=== PATIENT | male | born 1955 | race Caucasian/White ===

== ENCOUNTER 2017-11-16 06:54 | Day surgery (SDC) | payer BC, SELFPAY ==
[2017-11-16 07:17] VITALS: BP 111/83; PULSE 73; RESP 14; TEMP 36.2; O2SAT 98; BMI 28.9
--- NOTE | 2017-11-16 07:20 | EKG12_ITS ---
Test Reason : PRE OP Blood Pressure : / mmHG Vent. Rate : 065 BPM Atrial Rate : 065 BPM P-R Int : 192 ms QRS Dur : 088 ms QT Int : 396 ms P-R-T Axes : - 023 degrees QTc Int : 411 ms Normal sinus rhythm Normal ECG When compared with ECG of 24-JUN-1998 09:30, Questionable change in QRS axis Confirmed by COREY WAY, KHANG ([id number]), market editor VIOLETTA ENCARNACION ([id number]) on 11/21/2017 1:54:22 PM Referred By: Oscar Aburto Confirmed By:KHANG NICOLE MD
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
--- NOTE | 2017-11-16 08:30 | COLBX_PTH ---
PATIENT: JAYLENE SHARMA LOC: EN U#:[id number] AGE/SX: 62/M ROOM: RE11/16/[address]: Dr. Oscar Aburto MD : 1955 BED: DIS: 11/16/2017 SPEC #: [id number] RECD: 11/16/17 11:38 STATUS: JUAN J MARIA L #: [id number] HENOK: 11/16/17 08:[address]: Oscar Aburto DEPT: SURGICAL PATHOLOGY RECD BY: Zina Saha ENTERED: 11/16/17 12:05 SP TYPE: COLON BX OTHR DR: Dr. Lyndon Payton MD Tissues: Sigmoid colon biopsy Procedures: Surgery Specimen Level IV HEADER OPERATION: Colonoscopy PRE-OP DIAGNOSIS: Diverticulitis TISSUE SUBMITTED: Sigmoid colon at 15cm, polyp biopsy MICROSCOPIC DIAGNOSIS Sigmoid colon at 15cm, polyp, biopsy: Fragments of hyperplastic polyp. SJ:master 11/19/17 MICROSCOPIC DESCRIPTION Slides are reviewed. GROSS DESCRIPTION Received in fixative is one container labeled with the patient's name and designated sigmoid colon 15 cm polyp biopsy. The specimen consists of two irregular fragments of light gerber soft tissue that in aggregate measure 0.3 x 0.2 x 0.1 cm. The specimen is totally submitted in one cassette. / SJ:rg 11/16/17 TC:1 CPT: 05549
--- NOTE | 2017-11-16 08:42 | PCM.OPRPT ---
Problem List (1) Acute diverticulitis Status: Acute Report of Operation Date of Procedure: 11/16/17 Pre-Operative Diagnosis: Diverticulitis Post-Operative Diagnosis: Diverticulosis, sigmoid colon polyp Surgery/Procedure Performed:: Colonoscopy with biopsy Specimen's removed: Sigmoid colon polyp Description of Procedure: The major risks and benefits associated with the procedure were explained to the patient in detail. The patient verbalized understanding and agreement with the same. The patient was brought to the endoscopy suite. After adequate sedation was achieved, the patient was placed in the left lateral decubitus position and a digital rectal exam was performed. This examination was within normal limits. A well-lubricated colonoscope was then inserted into the rectum and advanced under direct visualization to the level of the cecum. The bowel prep was good. The cecum was identified by both visual and anatomic landmarks. A photograph was taken of the end of the cecum. The scope was then fully withdrawn while examining the color, texture, anatomy and integrity of the mucosa from the cecum to the anal canal. The findings were consistent with normal colonic mucosa. The patient had diverticulosis of the sigmoid colon. He did have a small polyp at 15 cm in the sigmoid colon which was removed with cold forceps. Over 6 minutes were taken to examine the colonic mucosa. Upon reaching the rectum the scope was retroflexed to examine the distal rectal vault. The scope was then straightened and was completely retrieved upon exiting the anal canal and the procedure was terminated. The patient was then transferred to the recovery room in stable condition. Recommendations for follow up: 10 years
[2017-11-16 08:48] VITALS: BP 107/84; BP 111/83; PULSE 64; RESP 18; TEMP 36.7; O2SAT 95
[2017-11-16 08:50] VITALS: BP 111/83; BP 118/88; PULSE 70; RESP 16; O2SAT 92
[2017-11-16 08:55] VITALS: BP 107/83; BP 111/83; PULSE 67; RESP 16; O2SAT 94
[2017-11-16 09:00] VITALS: BP 111/83; BP 125/84; PULSE 67; RESP 16; TEMP 36.3; O2SAT 93
[2017-11-16 09:24] VITALS: BP 111/83
== END 2017-11-16 09:24 | disposition home or self-care (01) ==
LOC: EN 06:55 → AC 06:56
PROVIDERS: Family Provider Family Medicine; PCP Family Medicine; Visit Provider Surgery
PROC: 0DJD8ZZ Inspection of Lower Intestinal Tract, Via Natural or Artificial Opening Endoscopic (ICD-10-PCS; CPT 45378; principal; 2017-11-16 07:55)
DX: K63.5 Polyp of colon (principal); K57.30 Diverticulosis of large intestine without perforation or abscess without bleeding; K21.9 Gastro-esophageal reflux disease without esophagitis; E78.00 Pure hypercholesterolemia, unspecified; N40.0 Benign prostatic hyperplasia without lower urinary tract symptoms; M19.90 Unspecified osteoarthritis, unspecified site; Z87.19 Personal history of other diseases of the digestive system; Z85.828 Personal history of other malignant neoplasm of skin; Z87.891 Personal history of nicotine dependence; Z79.899 Other long term (current) drug therapy
CPT/HCPCS: 45380; 88305; 93005; J7120

== ENCOUNTER 2017-11-26 06:20 | Inpatient (IN) | payer BC, SELFPAY ==
[2017-11-26] VITALS (13 sets, daily range): BP systolic 113–155; BP diastolic 71–94; PULSE 66–89; RESP 12–18; TEMP 35.6–37.1; O2SAT 90–97; BMI 28.6
--- NOTE | 2017-11-26 07:12 | PCM.HP.STD ---
Problem List (1) Diverticulitis Status: Acute History of Present Illness Date of Admission: 11/26/17 The patient is a 62 year old M who has a history of recurrent diverticulitis. He has had many bouts in the past years and is here for elective sigmoid colectomy. He had a colonoscopy 1 week ago which was normal except for diverticulosis. He has not had any issues since last time I saw him. Past Medical History Past Medical History (Chronic Problems): Chronic Problems (Last Reviewed 09/25/17 @ 14:06 by Denise John) GERD (gastroesophageal reflux disease) (Chronic) HLD (hyperlipidemia) (Chronic) Obesity (BMI 30.0-34.9) (Chronic) Allergies benzonatate [From [employer]PharmAthene] Allergy (Verified 11/15/17 08:21) Unknown Iyzjxhi-Zwd-Sul Reductase Inhibitor Allergy (Verified 11/15/17 08:21) SWOLLEN LIVER Home Medications: Ambulatory Orders Medication Instructions Recorded Cholecalciferol (Vitamin D3) 1,000 unit PO DAILY 09/08/17 [Vitamin D3] Ezetimibe [Zetia] 10 mg PO DAILY 09/08/17 Lysine [l-Lysine] 500 mg PO DAILY 09/08/17 Omeprazole [Prilosec] 10 mg PO DAILY 09/08/17 Surgical History: - - BL shoulder surgery, R 3rd-4th toe nerve removal. Psychiatric History: No pertinent psych hx Smoking Status: Former smoker - *Family History Maternal History Items: Heart Disease Paternal History Items: Heart Disease Review of Systems Constitutional: Denies: Anorexia, Fever HEENT: Denies: Difficulty Swallowing Cardiovascular: Denies: Chest Pain Respiratory: Denies: Cough, Shortness of Breath Gastrointestinal: Denies: Abdominal Pain, Nausea, Vomiting Genitourinary: Denies: Dysuria Musculoskeletal: Denies: Joint Tenderness Skin: Denies: Jaundice Neurological: Denies: Balance problems Psychiatric: Denies: Anxiety, Depression Hematologic/ Lymphatic: Denies: Adenopathy, Anemia VTE Information - Inpt Only VTE Present on Admission: No VTE Mechan Device Prophylaxis: SCD's VTE Pharm Prophylaxis ordered?: Yes Patient Problems: Active and Suspected Problems (Last Reviewed 09/25/17 @ 14:06 by Denise John) Diverticulitis (Acute) - Physical Exam General: Alert, Oriented x3, Cooperative, No apparent distress HEENT: Atraumatic, PERRLA, EOMI Oral: Moist Mucosa Neck: No JVD Lungs: Normal air movement Cardiovascular: Regular rate, Regular Rhythm Abdomen: Soft, Non Tender, Non-Distended Extremities: No clubbing Skin: No breakdown Musculoskeletal: No Tenderness to Palpation of Joints or Extremities Lymphatic: No Cervical, Supraclavicular, or Inguinal Adenopathy Neurological: Cranial nerves II-XII grossly intact Psych/Mental Status: Normal Affect, Appropriate Assessment/Plan Active and Suspected Problems (Last Reviewed 09/25/17 @ 14:06 by Denise John) Diverticulitis (Acute) 62-year-old male with recurrent diverticulitis of the colon 1. Patient here for elective sigmoid laparoscopic colectomy. I discussed elective colectomy with the patient when he had his last bout of acute diverticulitis and he said that he has had so many events that he would like his colon removed. I did a colonoscopy last week which was normal except for diverticulosis. 2. I explained the procedure in detail to the patient and his family. I explained the risks included with the procedure. I explained the risks including but not limited to bleeding, infection, anastomotic leak, ureter injury, bowel or bladder injury, need for stoma. The patient understands all the risks and is willing to proceed with surgery. Oscar Aburto MD Pager: [facility] [address], [address] [address] Office:
--- NOTE | 2017-11-26 07:15 | HP.PCM_ITS ---
Problem List (1) Diverticulitis Status: Acute History of Present Illness Date of Admission: 11/26/17 The patient is a 62 year old M who has a history of recurrent diverticulitis. He has had many bouts in the past years and is here for elective sigmoid colectomy. He had a colonoscopy 1 week ago which was normal except for diverticulosis. He has not had any issues since last time I saw him. Past Medical History Past Medical History (Chronic Problems): Chronic Problems (Last Reviewed 09/25/17 @ 14:06 by Denise John) GERD (gastroesophageal reflux disease) (Chronic) HLD (hyperlipidemia) (Chronic) Obesity (BMI 30.0-34.9) (Chronic) Allergies benzonatate [From [employer]] Allergy (Verified 11/15/17 08:21) Unknown Uiakqzy-Tht-Aat Reductase Inhibitor Allergy (Verified 11/15/17 08:21) SWOLLEN LIVER Home Medications: Ambulatory Orders Medication Instructions Recorded Cholecalciferol (Vitamin D3) 1,000 unit PO DAILY 09/08/17 [Vitamin D3] Ezetimibe [Zetia] 10 mg PO DAILY 09/08/17 Lysine [l-Lysine] 500 mg PO DAILY 09/08/17 Omeprazole [Prilosec] 10 mg PO DAILY 09/08/17 Surgical History: - - BL shoulder surgery, R 3rd-4th toe nerve removal. Psychiatric History: No pertinent psych hx Smoking Status: Former smoker - *Family History Maternal History Items: Heart Disease Paternal History Items: Heart Disease Review of Systems Constitutional: Denies: Anorexia, Fever HEENT: Denies: Difficulty Swallowing Cardiovascular: Denies: Chest Pain Respiratory: Denies: Cough, Shortness of Breath Gastrointestinal: Denies: Abdominal Pain, Nausea, Vomiting Genitourinary: Denies: Dysuria Musculoskeletal: Denies: Joint Tenderness Skin: Denies: Jaundice Neurological: Denies: Balance problems Psychiatric: Denies: Anxiety, Depression Hematologic/ Lymphatic: Denies: Adenopathy, Anemia VTE Information - Inpt Only VTE Present on Admission: No VTE Mechan Device Prophylaxis: SCD's VTE Pharm Prophylaxis ordered?: Yes Patient Problems: Active and Suspected Problems (Last Reviewed 09/25/17 @ 14:06 by Denise John) Diverticulitis (Acute) - Physical Exam General: Alert, Oriented x3, Cooperative, No apparent distress HEENT: Atraumatic, PERRLA, EOMI Oral: Moist Mucosa Neck: No JVD Lungs: Normal air movement Cardiovascular: Regular rate, Regular Rhythm Abdomen: Soft, Non Tender, Non-Distended Extremities: No clubbing Skin: No breakdown Musculoskeletal: No Tenderness to Palpation of Joints or Extremities Lymphatic: No Cervical, Supraclavicular, or Inguinal Adenopathy Neurological: Cranial nerves II-XII grossly intact Psych/Mental Status: Normal Affect, Appropriate Assessment/Plan Active and Suspected Problems (Last Reviewed 09/25/17 @ 14:06 by Denise John) Diverticulitis (Acute) 62-year-old male with recurrent diverticulitis of the colon 1. Patient here for elective sigmoid laparoscopic colectomy. I discussed elective colectomy with the patient when he had his last bout of acute diverticulitis and he said that he has had so many events that he would like his colon removed. I did a colonoscopy last week which was normal except for diverticulosis. 2. I explained the procedure in detail to the patient and his family. I explained the risks included with the procedure. I explained the risks including but not limited to bleeding, infection, anastomotic leak, ureter injury, bowel or bladder injury, need for stoma. The patient understands all the risks and is willing to proceed with surgery. Oscar Aburto MD Pager: [facility] [address], [address] [address] Office:
--- NOTE | 2017-11-26 08:00 | COL_PTH ---
PATIENT: JAYLENE SHARMA LOC: MS2 U#:[id number] AGE/SX: 62/M [place] [facility] RE11/26/[address]: Dr. Oscar Aburto MD : 1955 BED: 1 DIS: 11/28/2017 SPEC #: [id number] RECD: 11/26/17 11:32 STATUS: JUAN J MARIA L #: [id number] HENOK: 11/26/17 08:[address]: Oscar Aburto DEPT: SURGICAL PATHOLOGY RECD BY: Andrew Melendez ENTERED: 11/26/17 12:47 SP TYPE: COLON OTHR DR: Dr. Lyndon Payton MD Tissues: A - Colon, NOS B - Colon Donuts Procedures: Surgery Specimen Level III Surgery Specimen Level V HEADER OPERATION: Laparoscopic sigmoid colectomy PRE-OP DIAGNOSIS: Recurrent diverticulitis TISSUE SUBMITTED: A ? Sigmoid colon ? suture snyder proximal margin, B ? Distal and proximal doughnut MICROSCOPIC DIAGNOSIS A. Sigmoid colon, colectomy: Diverticulosis. B. Distal and proximal donut: Colonic donuts with focal mucosal congestion and hemorrhage. SJ:master 11/28/17 MICROSCOPIC DESCRIPTION Slides are reviewed. GROSS DESCRIPTION A - Received in fixative is one container labeled with the patient's name and designated sigmoid colon. The specimen consists of an 18.5 cm segment of bowel with attached fibrofatty tissue. A suture is present at one edge signifying the proximal margin. No gross perforation is identified. Serial sections reveal a number of diverticula. None of these appear to have perforated through the bowel wall. The pericolic fatty tissue is grossly unremarkable. Tufter sections are submitted in six cassettes as follows: 1 ? proximal mucosal margin, 2 ? distal mucosal margin, 3-5 ? diverticula, 6 ? pericolic fatty tissue. B - Received in fixative is one container labeled with the patient's name and designated distal and proximal donuts. The specimen consists of two mucosal donuts. One mucosal donut measures 2 cm in diameter and 1 cm in average thickness. No mucosal mass lesions are identified. Tufter sections are submitted in one cassette. The second mucosal donut measures 1.8 cm in diameter and 1.2 cm in thickness. No mucosal mass lesions are identified. Tufter sections of the second donut are submitted in cassette #2. / AM:master 11/27/17 TC:5 CPT: 43135, 40761 x2
[2017-11-26] MEDS: Lubricating Jelly 60 GM Tube 30 GM TOPICAL (10:00)
[2017-11-26] MEDS: Bupivacaine Mpf 0.5% 30 ML VIAL (10:57)
--- NOTE | 2017-11-26 11:15 | PCM.OPRPT ---
Problem List (1) Diverticulitis Status: Acute Report of Operation Date of Procedure: 11/26/17 Pre-Operative Diagnosis: Recurrent diverticulitis Post-Operative Diagnosis: Same Surgery/Procedure Performed:: Laparoscopic sigmoid colon resection with primary anastomosis Type of Anesthesia:: General Specimen's removed: Sigmoid colon with suture marking the proximal margin Description of Procedure: The patient was brought to the operating room and general anesthesia was induced. The patient was placed in stirrups and a Faye catheter was placed. Clear urine was returned. Next the rectum was irrigated with dilute iodine and saline solution. The abdomen was then prepped and draped in the usual sterile fashion as was the perineum. After timeout was completed and incision was made superior to the umbilicus and deepened to the level the fascia. The fascia was elevated and incised. A finger sweep was performed and then a 12 mm port was placed into the abdomen and the abdomen was insufflated to 15 mmHg. Next the camera was inserted in the abdomen and the abdomen was inspected. There were some adhesions to the anterior abdominal wall in the left lower quadrant. Next under direct visualization a right lower quadrant 12 mm port and a right mid abdominal 5 mm port were placed. The anterior adhesions were freed up using sharp dissection with laparoscopic scissors. This was carried down to the white line of Toldt and the dissection was carried lateral to medial. There was good freeing of the sigmoid colon with identification of the left ureter. This was carried inferiorly and superiorly until the colon was freed from the left abdominal sidewall. Next a small window was made in the mesentery with the Enseal device and carried to the lateral side of the mesentery. A [place] was then placed in the abdomen and used to elevate the colon through this window. The window was elongated on both sides both proximally and distally with the Enseal. Next the peritoneum was taken down until the superior rectum was reached. A 60 mm blue load stapler was placed into the abdomen and stapled across the superior rectum. Next a location was chosen proximally that was free of disease and a small plastic clip was placed on this to orient. The mesenteric dissection was carried proximally with the Enseal until the clip was reached. Next the clipped area was stretched out into the rectum and reached very easily with no tension. Next a Pfannenstiel incision was made in the lower abdomen and deepened to the fascia which was opened transversely. The muscles were laterally from the midline and the peritoneum was grasped and elevated and incised. Next the wound protector was placed into this wound and the distal end of the colon was brought through this incision. The plastic clip was located and at this area the colon was cleaned circumferentially of mesentery and there was pulsatile bleeding at this area. Bowel clamps were used to clamp this area and the colon was divided and sent for specimen. The suture marked the proximal end of the specimen. Next sizers were used and a 29 EEA stapler was selected. The anvil was placed into the distal colon and a Prolene suture was used to create a pursestring suture around the anvil. The anvil was cleaned of any fat. Next the anvil and distal colon were dropped back into the abdomen and the wound protector was tied tight and the abdomen was reinsufflated to 15 mmHg. The pelvis appeared dry and was irrigated and suctioned. Next sizers were placed into the rectum from below and the 29 stapler was then placed through the anus and into the proximal rectum. The tip was deployed and it was attached to the anvil. The mesentery was inspected to ensure that the colon was not twisted. Next the stapler was tightened ensuring that no fat was docked in the staple line and that it was not against the abdominal sidewall. The stapler was then fired and removed. Next the bowel was clamped proximally and the pelvis was irrigated so that the anastomosis was under water. Next the rigid proctoscope was placed into the anus and inflated until air was escaping beyond the proctoscope. There were no bubbles seen inside. Next the abdomen was suctioned and irrigated copiously and suctioned once more. The abdomen was inspected and there was no brisk bleeding. Next the ports were removed under direct visualization. All staff in the room then changed their gowns and gloves. The wound protector was removed and the peritoneum was closed and the Pfannenstiel incision with a running 3-0 Vicryl suture. The cavity was then irrigated and suctioned. The fascia was then closed with a running 0 PDS suture in a continuous fashion. The wound was again irrigated. Next the fascia of the midline and right lower quadrant incisions were closed with a 0 Vicryl suture. All incisions were irrigated once more and anesthetized with half percent Marcaine. Next all incisions were closed with interrupted 4-0 Monocryl sutures, Steri-Strips, and bandages. The patient tolerated the procedure well. The patient was brought to PACU the end the case with Faye in place. - Admit VTE Documentation VTE Present on Admission: No VTE Mechan Device Prophylaxis: SCD's
--- NOTE | 2017-11-26 11:47 | NURSING ---
WARM BLANKETS PROVIDED- PT DOES NOT C/O OF BEING COLD, WARM TO TOUCH
[2017-11-26] MEDS: Dextrose 5%-Lactated Ringers 1,000 ML 100 ML IV ×2 (11:57→22:27)
[2017-11-26] MEDS: 0.9% NaCl Peripheral Flush Adult/Peds IV (15:40)
[2017-11-26] MEDS: Ketorolac 15 MG/ML Vial IV ×2 (15:41→22:27)
[2017-11-27 02:00] VITALS: BP 97/61; PULSE 65; RESP 16; TEMP 37; O2SAT 93
--- NOTE | 2017-11-27 02:11 | NURSING ---
Scopolamine patch removed per patient request
[2017-11-27 05:18] LABS: Absolute Lymphocyte Count 1.01 X10^3/ul (0.83-4.51); Absolute Neutrophil Count 9.8 X10^3/uL (2.0-7.7); Basophil# 0.02 X10^3/uL; Basophil% 0.2 % (0-1); Eosinophil# 0.01 X10^3/uL; Eosinophils% 0.1 % (0-5); Hematocrit 40.2 % (40-54); Hemoglobin 13.2 g/dl (13.0-16.5); Lymphocyte # 1.01 X10^3/ul (4.0); Lymphocyte % 8.3 % (19-41); Mean Corp Hgb Conc 32.8 g/gl (32-36); Mean Corpuscular Hgb 30.3 pg (27.0-32.0); Mean Corpuscular Volume 92.2 fL (80-94); Monocyte# 1.24 X10^3/uL; Monocyte% 10.2 % (0-10); Neutrophil # 9.79 X10^3/uL (2.7-7.7); Platelet Count 151 K/mm3 (150-450); Red Blood Count 4.36 M/mm3 (4.6-6.2); White Blood Count 12.1 K/mm3 (4.4-11.0)
[2017-11-27 05:23] LABS: POSITIVE COUNT NO; POSITIVE DIFFERENTIAL NO; POSITIVE MORPHOLOGY NO
[2017-11-27 05:39] LABS: Anion Gap 8 (5-15); BUN 14 mg/dL (7-18); BUN/Creat Ratio 12.2 RATIO (10-20); Calcium,Total 8.2 mg/dL (8.5-10.1); Chloride 107 mmol/L (98-107); Creatinine, Serum 1.15 mg/dL (0.70-1.30); EST Glomerular Filtration Rate 68 mL/min (>60); Est Glom Filt Rate - Afr Amer 82 mL/min (>60); Estimated Creatinine Clearance 70.03 ml/min; Glucose 111 mg/dL (74-106); Magnesium 1.7 mg/dL (1.6-2.6); Phosphorus 2.7 mg/dL (2.5-4.9); Sodium Level 141 mmol/L (136-145)
[2017-11-27] MEDS: Ketorolac 15 MG/ML Vial IV ×3 (05:54→21:51)
[2017-11-27] MEDS: Dextrose 5%-Lactated Ringers 1,000 ML 100 ML IV ×2 (07:30→17:39)
[2017-11-27 07:32] VITALS: BP 113/69; PULSE 62; RESP 14; TEMP 36.8; O2SAT 92
--- NOTE | 2017-11-27 07:58 | PN.SURG_ITS ---
Patient Problems: Active and Suspected Problems (Last Reviewed 09/25/17 @ 14:06 by Denise John) Diverticulitis (Acute) Subjective: Patient doing well this morning. He reports no flatus. He has no nausea vomiting. He has minimal abdominal pain and rates it as 2. He is only taking Toradol with no narcotic use. - Physical Exam General: Alert, Cooperative, No apparent distress HEENT: Atraumatic Lungs: Normal air movement Cardiovascular: Regular rate, Regular Rhythm Abdomen: Soft, Non-Distended, Tender - Mild appropriate tenderness in the left lower quadrant., - - Incisions are clean dry and intact. Vital Signs Temp Pulse Resp BP Pulse Ox 98.2 F 62 14 113/69 92 11/27/17 07:32 11/27/17 07:32 11/27/17 07:32 11/27/17 07:32 11/27/17 07:32 Oxygen Flow Rate (L/min) 2 Oxygen Delivery Method Room Air Weight: 205 lb 7.533 oz Body Mass Index (BMI) 28.6 Intake and Output for Last 24 Hours 11/25/17 11/26/17 11/27/17 23:59 23:59 23:59 Intake Total 3443 / 3443 1238 / 1238 Output Total 925 / 925 550 / 550 Balance 2518 / 2518 688 / 688 Laboratory Tests Past 24 Hrs 11/27/17 11/27/17 04:49 04:49 WBC 12.1 H RBC 4.36 L Hgb 13.2 Hct 40.2 MCV 92.2 MCH 30.3 MCHC 32.8 RDW 13.0 RDW Differential 43.0 Plt Count 151 MPV 11.0 Immature Gran % (Auto) 0.200 Neut % (Auto) 81.0 H Lymph % (Auto) 8.3 L Reeves % (Auto) 10.2 H Eos % (Auto) 0.1 Baso % (Auto) 0.2 Absolute Neuts (auto) 9.8 H Absolute Lymphs (auto) 1.01 Total Counted Not Reportable Sodium 141 Potassium 4.0 Chloride 107 Carbon Dioxide 26.0 Anion Gap 8 BUN 14 Creatinine 1.15 Estim Creat Clear Calc 70.03 Est GFR (MDRD) Af Amer 82 Est GFR (MDRD) Non-Af 68 BUN/Creatinine Ratio 12.2 Glucose 111 H Calcium 8.2 L Phosphorus 2.7 Magnesium 1.7 Assessment/Plan Active and Suspected Problems (Last Reviewed 09/25/17 @ 14:06 by Denise John) Diverticulitis (Acute) 62-year-old male status post laparoscopic sigmoidectomy, POD 1 1. Patient seems to be doing very well this morning. His Faye is removed. He is ambulating on minimal pain medications. I will continue his IV fluids and n.p.o. status until he is passing flatus and then started on a clear liquid diet. 2. Start Lovenox today. Oscar Aburto MD Pager: [facility] [address], [facility] [address] [place] [address] Office:
[2017-11-27 08:45] VITALS: O2SAT 91
[2017-11-27] MEDS: Enoxaparin 40 MG/0.4 ML Syringe SC (10:25)
[2017-11-27] MEDS: Pantoprazole Sodium 40 MG Tablet PO (10:25)
--- NOTE | 2017-11-27 12:10 | NURSING ---
Dr. Aburto up to unit to see pt at this time. States that he wants to make sure that stool is not too bloody and wants to wait to advance diet until patient passes flatus. Pt states this has not happened yet.
[2017-11-27] MEDS: 0.9% NaCl Peripheral Flush Adult/Peds IV (13:17)
[2017-11-27 14:00] VITALS: BP 141/91; PULSE 66; RESP 14; TEMP 36.8; O2SAT 97
[2017-11-27 20:06] VITALS: BP 145/87; PULSE 66; RESP 18; TEMP 36.8; O2SAT 94
[2017-11-28 02:06] VITALS: BP 130/75; PULSE 62; RESP 18; TEMP 36.9; O2SAT 93
[2017-11-28] MEDS: Dextrose 5%-Lactated Ringers 1,000 ML 100 ML IV (02:37)
[2017-11-28] MEDS: Ketorolac 15 MG/ML Vial IV (06:24)
[2017-11-28 06:27] LABS: Absolute Lymphocyte Count 1.18 X10^3/ul (0.83-4.51); Absolute Neutrophil Count 4.8 X10^3/uL (2.0-7.7); Basophil# 0.03 X10^3/uL; Basophil% 0.4 % (0-1); Eosinophil# 0.17 X10^3/uL; Eosinophils% 2.4 % (0-5); Hematocrit 38.6 % (40-54); Hemoglobin 12.6 g/dl (13.0-16.5); Lymphocyte # 1.18 X10^3/ul (4.0); Lymphocyte % 16.8 % (19-41); Mean Corp Hgb Conc 32.6 g/gl (32-36); Mean Corpuscular Hgb 30.6 pg (27.0-32.0); Mean Corpuscular Volume 93.7 fL (80-94); Mean Platelet Vol. 11.1 fl (6.2-12.0); Monocyte% 11.4 % (0-10); Neutrophil # 4.82 X10^3/uL (2.7-7.7); Neutrophil % 68.9 % (47-70); Platelet Count 141 K/mm3 (150-450); RBC Distribution Width CV 13.1 % (11.6-14.6); RBC Distribution Width SD 43.5 fl (35.1-43.9); Red Blood Count 4.12 M/mm3 (4.6-6.2)
[2017-11-28 06:32] LABS: POSITIVE COUNT NO; POSITIVE DIFFERENTIAL NO; POSITIVE MORPHOLOGY NO
[2017-11-28 06:47] VITALS: O2SAT 97
[2017-11-28 06:47] LABS: Anion Gap 8 (5-15); BUN 12 mg/dL (7-18); BUN/Creat Ratio 10.8 RATIO (10-20); Calcium,Total 8.4 mg/dL (8.5-10.1); Chloride 108 mmol/L (98-107); Creatinine, Serum 1.11 mg/dL (0.70-1.30); EST Glomerular Filtration Rate 71 mL/min (>60); Est Glom Filt Rate - Afr Amer 86 mL/min (>60); Estimated Creatinine Clearance 72.55 ml/min; Glucose 100 mg/dL (74-106); Potassium 3.7 mmol/L (3.5-5.1); Sodium Level 143 mmol/L (136-145)
[2017-11-28 08:20] VITALS: BP 116/82; PULSE 87; RESP 16; TEMP 36.8; O2SAT 95
[2017-11-28] MEDS: Enoxaparin 40 MG/0.4 ML Syringe SC (09:32)
[2017-11-28] MEDS: Pantoprazole Sodium 40 MG Tablet PO (09:32)
--- NOTE | 2017-11-28 13:47 | PCM.PN.SRG ---
Patient Problems: Active and Suspected Problems (Last Reviewed 09/25/17 @ 14:06 by Denise John) Diverticulitis (Acute) Subjective: Patient is doing well. He had flatus last night and was started on a clear liquid diet. He tolerated clear last night and was advanced to a soft diet this morning. He tolerated a normal breakfast and lunch. He is having no nausea or vomiting or abdominal pain. He is still continuing to pass flatus. - Physical Exam General: Alert, Oriented x3, Cooperative, No apparent distress Lungs: Normal air movement Cardiovascular: Regular rate, Regular Rhythm Abdomen: Soft, Non Tender, Non-Distended, - - Bandages were removed. His incisions are clean dry and intact with no sign of erythema or ecchymosis. Vital Signs Temp Pulse Resp BP Pulse Ox 98.3 F 87 16 116/82 H 95 11/28/17 08:20 11/28/17 08:20 11/28/17 08:20 11/28/17 08:20 11/28/17 08:20 Oxygen Flow Rate (L/min) 2 Oxygen Delivery Method Room Air Weight: 205 lb 7.533 oz Body Mass Index (BMI) 28.6 Intake and Output for Last 24 Hours 11/26/17 11/27/17 11/28/17 23:59 23:59 23:59 Intake Total 3443 / 3443 2408 / 2408 2483 / 2483 Output Total 925 / 925 850 / 850 3730 / 3730 Balance 2518 / 2518 1558 / 1558 -1247 / -1247 Laboratory Tests Past 24 Hrs 11/28/17 11/28/17 06:00 06:00 WBC 7.0 RBC 4.12 L Hgb 12.6 L Hct 38.6 L MCV 93.7 MCH 30.6 MCHC 32.6 RDW 13.1 RDW Differential 43.5 Plt Count 141 L MPV 11.1 Immature Gran % (Auto) 0.100 Neut % (Auto) 68.9 Lymph % (Auto) 16.8 L [place] % (Auto) 11.4 H Eos % (Auto) 2.4 Baso % (Auto) 0.4 Absolute Neuts (auto) 4.8 Absolute Lymphs (auto) 1.18 Total Counted Not Reportable Sodium 143 Potassium 3.7 Chloride 108 H Carbon Dioxide 27.0 Anion Gap 8 BUN 12 Creatinine 1.11 Estim Creat Clear Calc 72.55 Est GFR (MDRD) Af Amer 86 Est GFR (MDRD) Non-Af 71 BUN/Creatinine Ratio 10.8 Glucose 100 Calcium 8.4 L Assessment/Plan Active and Suspected Problems (Last Reviewed 09/25/17 @ 14:06 by Denise John) Diverticulitis (Acute) 62-year-old male status post laparoscopic sigmoid colectomy, POD 2 1. Patient is doing very well today. His incisions are clean dry and intact and he has no abdominal pain. He has tolerated regular breakfast and lunch. He is passing flatus. I will discharge him home after dinner. I will give him 1 dose of Colace today. Follow-up in 1 week. Oscar Aburto MD Pager: [facility] [address], [address] [place] [address] Office:
--- NOTE | 2017-11-28 13:49 | PCM.DC.GB ---
Discharge Diet: Light diet - advance as tolerated Discharge Activity: Return to Normal Activity, May Not Drive - for 2-3 days or while taking narcotic pain medicataions. May shower in (days): 1 - with the bandage in place. Lifting Restrictions: 20 lbs for 4 weeks Additional Activity Instructions:: Pain medication may cause nausea. You should typically eat light foods as you take your pain medications. Pain medication may also cause constipation. If this is a problem for you, please discuss with your doctor. Call your doctor if your incision/area has: Continuous Slow Oozing, Sudden Increased Bleeding, Increased Pain/ Swelling, Increased Redness, Foul Smelling Discharge, Fever of 101 or Higher Call your doctor if you observe: Fever of 101 or Higher Suture Line Care: Avoid Pulling/Pushing, Avoid Pinching/Bending Additional Dressing/Incision Instructions:: Leave Steri-Strips on until your follow-up appointment, or until the Steri-Strips fall off on their own. Allergies/Adverse Reactions: Allergies benzonatate [From [email or web address]] Allergy (Verified 11/15/17 08:21) Unknown Ueluupk-Ech-Cks Reductase Inhibitor Allergy (Verified 11/15/17 08:21) SWOLLEN LIVER Medications to take at Discharge Cholecalciferol (Vitamin D3) [Vitamin D3] 1,000 unit PO DAILY 09/08/17 Ezetimibe [Zetia] 10 mg PO DAILY 09/08/17 Lysine [l-Lysine] 500 mg PO DAILY 09/08/17 Omeprazole [Prilosec] 10 mg PO DAILY 09/08/17 Acetaminophen [Tylenol Tablet] 650 mg PO Q6H PRN PRN tablet 11/28/17 Primary Care Physician: Lyndon Payton MD [Primary Care Provider] - Please Follow Up With: Oscar Aburto MD When: call tomorrow to make 1 week follow up appt [phone]
--- NOTE | 2017-11-28 13:52 | DS.PCM_ITS ---
Discharge Date and Diagnosis - Problem List Patient Problems: Active and Suspected Problems (Last Reviewed 09/25/17 @ 14:06 by Denise John) Diverticulitis (Acute) Date of Admission: 11/26/17 Date of Discharge: 11/28/17 - Primary Discharge Diagnosis Active and Suspected Problems (Last Reviewed 09/25/17 @ 14:06 by Denise John) Diverticulitis (Acute) - Secondary Discharge Diagnosis Chronic Problems (Last Reviewed 09/25/17 @ 14:06 by Denise John) GERD (gastroesophageal reflux disease) (Chronic) HLD (hyperlipidemia) (Chronic) Obesity (BMI 30.0-34.9) (Chronic) Hospital Course and Treatment Operations: colectomy Procedures: None Summary of Care Provided: The patient is a 62 year old M who had an elective laparoscopic sigmoid colectomy on 11/26. Surgery went well and he was brought to the floor postoperatively. On postop day 1 he was ambulating well and his pain was well- controlled on Toradol. The evening of postop day 1 he began passing flatus and was started on a clear liquid diet. The following morning he was advanced to a soft diet. He tolerated breakfast lunch and after dinner he was discharged home on a low residue diet. Discharge Diet: Light diet - advance as tolerated Discharge Activity: Return to Normal Activity, May Not Drive - for 2-3 days or while taking narcotic pain medicataions. May shower in (days): 1 - with the bandage in place. Additional Activity Instructions:: Pain medication may cause nausea. You should typically eat light foods as you take your pain medications. Pain medication may also cause constipation. If this is a problem for you, please discuss with your doctor. Call your doctor if your incision/area has: Continuous Slow Oozing, Sudden Increased Bleeding, Increased Pain/ Swelling, Increased Redness, Foul Smelling Discharge, Fever of 101 or Higher Call your doctor if you observe: Fever of 101 or Higher Suture Line Care: Avoid Pulling/Pushing, Avoid Pinching/Bending Additional Dressing/Incision Instructions:: Leave Steri-Strips on until your follow-up appointment, or until the Steri-Strips fall off on their own. Home Medications: Medications to take at Discharge Cholecalciferol (Vitamin D3) [Vitamin D3] 1,000 unit PO DAILY 09/08/17 Ezetimibe [Zetia] 10 mg PO DAILY 09/08/17 Lysine [l-Lysine] 500 mg PO DAILY 09/08/17 Omeprazole [Prilosec] 10 mg PO DAILY 09/08/17 Acetaminophen [Tylenol Tablet] 650 mg PO Q6H PRN PRN tablet 11/28/17 Primary Care Physician: Lyndon Payton MD [Primary Care Provider] - Please Follow Up With: Oscar Aburto MD When: call tomorrow to make 1 week follow up appt [phone] Meaningful Use Info Meaningful Use Diagnoses (Choose all that apply): None applicable
[2017-11-28 14:00] VITALS: BP 168/95; PULSE 68; RESP 18; TEMP 36.8; O2SAT 97
== END 2017-11-28 17:15 | disposition home or self-care (01) | DRG 331 ==
LOC: MS2 06:21
PROVIDERS: Admitting Provider Surgery; Family Provider Family Medicine; PCP Family Medicine; Visit Provider Surgery
PROC: 0DTN0ZZ Resection of Sigmoid Colon, Open Approach (ICD-10-PCS; CPT 44204; principal; 2017-11-26 07:35)
DX: K57.32 Diverticulitis of large intestine without perforation or abscess without bleeding (principal); E66.9 Obesity, unspecified; E78.5 Hyperlipidemia, unspecified; K21.9 Gastro-esophageal reflux disease without esophagitis; Z87.891 Personal history of nicotine dependence; Z68.28 Body mass index [BMI] 28.0-28.9, adult
CPT/HCPCS: 36415; 80048; 83735; 84100; 85025; 88304; 88307; J3010; J7120; A4216; J2405

== ENCOUNTER → 2018-02-04 16:42 | Outpatient (CLI) | payer BC, SELFPAY ==
[2018-02-06 09:27] LABS: PSA, Free 0.59 ng/mL; PSA, Free % 15.1 % (.); PSA, Total Ultrasensitive 3.9 ng/mL (0.0-4.0)
== END ==
PROVIDERS: Family Provider Family Medicine; PCP Family Medicine; Visit Provider Nurse Practitioner Adult Health
DX: R97.20 Elevated prostate specific antigen [PSA] (principal)
CPT/HCPCS: 36415; 84153; 84154

== ENCOUNTER → 2019-01-21 | Outpatient (CLI) | payer BC, SELFPAY | END | disposition home or self-care (01) | LOC: LABSPEC 15:19 | PROVIDERS: Family Provider Family Medicine; PCP Family Medicine; Referring Provider Otolaryngology; Visit Provider Otolaryngology | DX: J01.90 Acute sinusitis, unspecified (principal) | CPT/HCPCS: 87070; 87205 ==

== ENCOUNTER → 2019-04-01 | Outpatient (CLI) | payer BC, SELFPAY ==
--- NOTE | 2019-04-01 07:45 | AAAS_ITS ---
Reason For Study: Screening Aorta Measurements Aorta Doppler Measurements Proximal aorta measures1.70 x 1.67cm. in cross- Peak systolic flow velocities within the proximal sectional axis. aorta measure 81.5 cm/sec. Proximal aorta measures1.68cm. in longitudinal Peak systolic flow velocities within the mid aorta axis. measure 39.3 cm/sec. Mid aorta measures2.23 x 2.25cm. in cross- Peak systolic flow velocities within the distal sectional axis. aorta measure 63.9 cm/sec. Mid aorta measures2.22cm. in longitudinal axis. Distal aorta measures2.34 x 2.35cm. in cross- sectional axis. Distal aorta measures2.26cm. in longitudinal axis. Left Iliac Artery Left iliac artery measures 1.49 x 1.46 cm. in the cross-sectional axis. Left iliac artery measures 1.42 cm. in the longitudinal axis. Peak systolic velocity in the left iliac artery measures 53.5 cm/sec. Right Iliac Artery Right iliac artery measures 1.77 x 1.62 cm. in the cross-sectional axis. Right iliac artery measures 1.72 cm. in the longitudinal axis. Peak systolic velocity in the right iliac artery measures 46.9 cm/sec. Procedure Aorta IVC Iliac vasculature or bypass grafts [id number]. Exam performed in department. Interpretation Summary The intra-abdominal aorta is ectatic, though not frankly aneurysmal. The right iliac artery is ectatic, though not frankly aneurysmal. The left iliac artery is normal in diameter. The intra- abdominal aorta and iliac arteries are patent, demonstrating normal, pulsatile arterial flow and normal peak systolic velocities. Ordering Physician: Lyndon Payton Referring Physician: Lyndon Payton Performed By: Veronica Meyer RVT
== END | disposition home or self-care (01) ==
PROVIDERS: Family Provider Family Medicine; PCP Family Medicine; Referring Provider Family Medicine; Visit Provider Family Medicine
DX: Z13.6 Encounter for screening for cardiovascular disorders (principal)
CPT/HCPCS: 76706

== ENCOUNTER → 2020-04-05 | Outpatient (CLI) | payer BC, SELFPAY ==
[2017-11-26 13:12] VITALS: BMI 28.6
[2020-04-05 08:58] LABS: AST(SGOT) 20 U/L (15-37); Alanine Aminotransfer ALT/SGPT 35 U/L (16-61); Albumin, Serum 3.5 g/dL (3.2-5.0); Alkaline Phosphatase 87 U/L (45-117); Anion Gap 4 (5-15); BUN 19 mg/dL (7-18); BUN/Creat Ratio 15.6 RATIO (10-20); Calcium,Total 8.7 mg/dL (8.5-10.1); Chloride 106 mmol/L (98-107); Cholesterol 257 mg/dL (200); Creatinine, Serum 1.22 mg/dL (0.70-1.30); EST Glomerular Filtration Rate 63 mL/min (>60); Est Glom Filt Rate - Afr Amer 76 mL/min (>60); Globulin 3.5 g/dL (2.2-4.2); Glucose 102 mg/dL (74-106); High Density Lipoprotein 37 mg/dL; PSA,Total - Annual Screen 4.52 ng/mL (0.00-4.00); Sodium Level 137 mmol/L (136-145); Triglycerides 117 mg/dL; Very Low Density Lipoprotein 23 mg/dL (5-40)
== END | disposition home or self-care (01) ==
LOC: LAB 07:42
PROVIDERS: PCP Family Medicine; Referring Provider Family Medicine; Visit Provider Family Medicine
DX: E78.5 Hyperlipidemia, unspecified (principal); Z12.5 Encounter for screening for malignant neoplasm of prostate; Z13.1 Encounter for screening for diabetes mellitus
CPT/HCPCS: 36415; 80053; 80061; 84153; G0103

== ENCOUNTER 2020-11-18 19:44 | Outpatient (RCR) | payer MEDICARE, OTHER, SELFPAY ==
[2017-11-26 13:12] VITALS: BMI 28.6
[2020-11-18] MEDS: COVID-19 VACC, MRNA(PFIZER)/PF 30 MCG/0.3 ML SYRINGE IM (17:33)
[2020-12-09] MEDS: COVID-19 VACC, MRNA(PFIZER)/PF 30 MCG/0.3 ML SYRINGE IM (17:06)
== END 2021-02-22 23:59 ==
LOC: IMMUN 19:44
PROVIDERS: PCP Family Medicine; Visit Provider Family Medicine
DX: Z23 Encounter for immunization (principal)
CPT/HCPCS: 0001A; 0002A; 91300

== ENCOUNTER 2021-03-01 18:39 | Emergency (ER) | payer MEDICARE, OTHER, SELFPAY ==
[2021-03-01 18:41] VITALS: BP 144/79; PULSE 80; RESP 16; TEMP 36.6; O2SAT 97; BMI 32.1
== END 2021-03-01 21:24 | disposition left against medical advice (07) ==
LOC: ED 21:24
PROVIDERS: PCP Family Medicine
DX: S61.214A Laceration without foreign body of right ring finger without damage to nail, initial encounter (principal)

== ENCOUNTER 2021-03-01 22:52 | Emergency (ER) | payer MEDICARE, OTHER, SELFPAY ==
[2021-03-01 18:41] VITALS: BMI 32.1
[2021-03-01 22:53] VITALS: BP 144/96; PULSE 78; RESP 16; TEMP 36.1; O2SAT 97; BMI 30.8
--- NOTE | 2021-03-01 23:16 | EDS_ITS ---
HPI History of Present Illness Chief Complaint: Laceration Informant: patient Narrative Narrative: Patient is a 65-year-old male who presents to the emergency department for right ring finger injury. He states that he was working on something whenever he pulled his hand back and hit it against a wall. There is a laceration to the finger. He was initially went to urgent care but return to the emerge part as they thought this might be a broken. Patient states that his last tetanus shot was within the past year. He is not on any blood thinning medications. He denies any loss of sensation. He can move the finger well without significant pain. He denies any other injury. [facility] Medical History (Updated 03/02/21 @ 00:[address] Ruperto Riggs, DO) Acute diverticulitis GERD (gastroesophageal reflux disease) HLD (hyperlipidemia) Obesity (BMI 30.0-34.9) Home Medications cholecalciferol (vitamin D3) 1,000 unit PO DAILY 09/08/17 [History Last Taken 09/07/17 08:00 1,000 unit] ezetimibe 10 mg PO DAILY 09/08/17 [History Last Taken 09/07/17 08:00 10 mg] lysine 500 mg PO DAILY 09/08/17 [History Last Taken 09/07/17 08:00 500 mg] omeprazole 10 mg PO DAILY 09/08/17 [History Last Taken 11/26/17 04:00 10 mg] acetaminophen 650 mg PO Q6H PRN PRN tab 11/28/17 [Rx Last Taken Unknown] cephalexin 500 mg PO TID 7 Days #21 cap 03/02/21 [Rx Last Taken Unknown] Allergy/AdvReac Type Severity Reaction Status Date / Time benzonatate Allergy Unknown Verified 03/01/21 22:52 [From A[employer]ena Ellsworth] Bgionvo-Bbd-Sfg Reductase Allergy SWOLLEN Verified 03/01/21 22:52 Inhibitor LIVER Family History Mother Heart disease High cholesterol Skin cancer Father High cholesterol Heart disease Brother High cholesterol Hypertension Sister High cholesterol Skin cancer Surgical History History of toe surgery s/p lap sigmoid resection (~11/26/17) S/P shoulder surgery Social History Smoking Status: Former smoker second hand exposure: No alcohol intake: current substance use type: does not use seatbelt use: always ROS ROS ED Constitutional Constitutional ED: Denies chills or fever(s) ENT ENT ED: Denies epistaxis Cardiovascular Cardiovascular: Denies chest pain Respiratory/Chest Respiratory/Chest: Denies cough or dyspnea Gastrointestinal Gastrointestinal: Denies abdominal pain, nausea or vomiting Musculoskeletal Musculoskeletal: Denies back pain or neck pain Integumentary Reports other Details: Laceration Neurologic Neurologic: Denies dizziness, headache(s) or weakness EXAM Physical Exam Const Vital Signs: 03/01/21 22:53 03/02/21 00:39 Temperature 97 F L Temperature Source Temporal Pulse Rate 78 74 Respiratory Rate 16 18 Blood Pressure 144/96 H 132/68 H Blood Pressure Mean 112 Pulse Ox 97 99 Oxygen Delivery Method Room Air Positive well nourished and well developed General Appearance ED: well developed and NAD HEENT Reports normocephalic and head/scalp atraumatic Eyes PERRL and EOMs intact bilaterally Neck supple Resp normal respiratory effort and clear to auscultation bilaterally Cardio regular rate and regular rhythm Extremity normal to inspection Extremity Narrative: Full range of motion of finger. No obvious deformity. No other injury noted. General Extremety ED: Negative for edema or tenderness General Extremity: Negative for edema Neuro no sensory deficits noted Sensorium / Orientation: alert Motor Exam: strength 5/5 throughout Psych mental status grossly normal Skin Skin Narrative: 1.5 cm Laceration to right ring finger pad, there is partial avulsed skin. This does splint off into a Y-shaped.. Mild venous ooze present. Sensation intact around the laceration. PROC Procedures Lacerations Finger: Length: 0.59 in Depth: Skin Shape: Y shaped Prep: Sterile Conditions and Shure-Clens Laceration repair: Digital block (5cc 1% lidocaine without epi) Irrigated (ml): 200 Number of Sutures/Mahendra: 5 Suture Information: Ethilon and 5-0 MDM MDM MDM Narrative Medical decision making narrative: Patient presents to the ED for laceration to right ring finger. He is up-to-date on tetanus. X-ray obtained to evaluate for fracture. Patient's x-ray did show a distal tuft fracture. Given the fact that this is open we will treat prophylactically with Keflex. Laceration was repaired after digital block was performed. The area was irrigated and cleansed. No foreign body appreciated. He is given orthopedic surgery referral for follow-up. Sutures will need to be removed in 7 to 10 days. Return precautions are reviewed including evidence of infection, difficulty moving the finger or significant swelling. He understands and is agreeable this plan. All questions answered. Radiography Diagnostic Testing: Radiology Impression Finger X-Ray 03/01/21 23:21 IMPRESSION: Acute minimally displaced comminuted fracture of the distal tuft of the distal fourth phalanx. Electronically Signed: Aidan Mayorga MD at 23:51 EDT Tel , Service support , Finger x-ray interpreted by myself. There is a distal tuft fracture of the fourth phalanx. Agree with radiologist interpretation. No obvious dislocation. Discharge Plan Triage Chief Complaint: Laceration ED Provider: Ruperto Riggs Dx/Rx/DC Orders Clinical Impression: Open fracture of tuft of distal phalanx of finger Instructions: ED Fracture, Finger, Open, ED Laceration, Hand: All Closures Prescriptions: New cephalexin 500 mg capsule 500 mg PO TID 7 Days Qty: 21 RF: 0 No Action omeprazole 10 MG capsule 10 mg PO DAILY RF: 0 lysine 500 MG tablet 500 mg PO DAILY RF: 0 cholecalciferol (vitamin D3) 1,000 UNIT capsule 1,000 unit PO DAILY RF: 0 ezetimibe 10 MG tablet 10 mg PO DAILY RF: 0 acetaminophen 325 MG tablet 650 mg PO Q6H PRN PRN (Reason: Pain) RF: 0 Primary Care Provider: Lyndon Payton Referrals: Lyndon Payton MD [Primary Care Provider] - Joel Bowden MD [STAFF PHYSICIAN] - 7 Days for suture removal Disposition Disposition: Home, self care Discharge Date/Time: 03/02/21 00:40
--- NOTE | 2021-03-01 23:21 | RAD_ITS ---
INDICATION: Crush injury EXAMINATION/TECHNIQUE: X-RAY - RIGHT HAND XR Fingers Min 2 Views COMPARISON: None. FINDINGS: Acute minimally displaced comminuted fracture of the distal tuft of the distal fourth phalanx. No blastic or lytic lesions. No degenerative changes are seen. Soft tissue swelling of the fourth digit. RAD/Finger(s) Min 2 Views IMPRESSION: Acute minimally displaced comminuted fracture of the distal tuft of the distal fourth phalanx. Electronically Signed: Aidan Mayorga MD at 23:51 EDT Tel , Service support ,
[2021-03-01] MEDS: Lidocaine 1% (20 ml mdv) 20 ML Vial 5 ML INFILT (23:22)
[2021-03-02] MEDS: Cephalexin 250 MG Capsule 500 MG PO (00:37)
[2021-03-02 00:39] VITALS: BP 132/68; PULSE 74; RESP 18; O2SAT 99
== END 2021-03-02 00:40 | disposition home or self-care (01) ==
PROVIDERS: Emergency Provider Emergency Medicine; PCP Family Medicine
DX: S62.634A Displaced fracture of distal phalanx of right ring finger, initial encounter for closed fracture (principal); S61.214A Laceration without foreign body of right ring finger without damage to nail, initial encounter; E66.9 Obesity, unspecified; Z68.30 Body mass index [BMI] 30.0-30.9, adult; Z87.891 Personal history of nicotine dependence; Z79.899 Other long term (current) drug therapy; X58.XXXA Exposure to other specified factors, initial encounter
CPT/HCPCS: 12001; 73140; 99283

== ENCOUNTER 2021-05-05 12:06 | Emergency (ER) | payer MEDICARE, OTHER, SELFPAY ==
[2021-05-05 12:07] VITALS: BP 151/110; PULSE 68; RESP 18; TEMP 36.6; O2SAT 100; BMI 31.1
--- NOTE | 2021-05-05 12:39 | EDS_ITS ---
HPI History of Present Illness Chief Complaint: Lower Extremity Injury Informant: patient and spouse/S.O. Narrative Narrative: Patient is a 66-year-old male who presents to the emergency department for right low back/buttock pain. Has been present over the past we ek. He felt like he was improving until this morning he woke up with the pain was a lot more severe. He states that ambulating made it worse. He has been taking ibuprofen for this which has not been giving significant relief. At this time he feels like the pain is starting to down a bit. He states just prior to the onset of the pain he did go on a canoeing trip. Yesterday he did a 6 mile bike ride which he believes might have made it worse. He denies any significant pain going down the right leg. No loss of muscle strength or sensation. No abdominal pain or chest pain/shortness of breath. No change in bowel movements. No urinary symptoms or retention. No saddle anesthesia. No fevers or chills. PFSH PFSH Medical History Acute diverticulitis GERD (gastroesophageal reflux disease) HLD (hyperlipidemia) Obesity (BMI 30.0-34.9) Home Medications cholecalciferol (vitamin D3) 1,000 unit PO DAILY 09/08/17 [History Last Taken 09/07/17 08:00 1,000 unit] ezetimibe 10 mg PO DAILY 09/08/17 [History Last Taken 09/07/17 08:00 10 mg] lysine 500 mg PO DAILY 09/08/17 [History Last Taken 09/07/17 08:00 500 mg] omeprazole 10 mg PO DAILY 09/08/17 [History Last Taken 11/26/17 04:00 10 mg] acetaminophen 650 mg PO Q6H PRN PRN tab 11/28/17 [Rx Last Taken Unknown] cephalexin 500 mg PO TID 7 Days #21 cap 03/02/21 [Rx Last Taken Unknown] cyclobenzaprine 10 mg PO TID PRN #10 tablet 05/05/21 [Rx Last Taken Unknown] Allergy/AdvReac Type Severity Reaction Status Date / Time benzonatate Allergy Unknown Verified 05/05/21 12:09 [From Ameena Ellsworth] Tkkyqqj-Akb-Npj Reductase Allergy SWOLLEN Verified 05/05/21 12:09 Inhibitor LIVER Family History Mother Heart disease High cholesterol Skin cancer Father High cholesterol Heart disease Brother High cholesterol Hypertension Sister High cholesterol Skin cancer Surgical History History of toe surgery s/p lap sigmoid resection (~11/26/17) S/P shoulder surgery Social History Smoking Status: Former smoker second hand exposure: No alcohol intake: current substance use type: does not use seatbelt use: always ROS ROS ED Constitutional Constitutional ED: Denies chills or fever(s) Eyes Eyes: Denies change in vision ENT ENT ED: Denies epistaxis or rhinorrhea Cardiovascular Cardiovascular: Denies chest pain or palpitations Respiratory/Chest Respiratory/Chest: Denies cough or dyspnea Gastrointestinal Gastrointestinal: Denies abdominal pain, diarrhea, nausea or vomiting Genitourinary Genitourinary ED: Denies dysuria, hematuria or urinary frequency Musculoskeletal Musculoskeletal: Reports back pain; Denies neck pain Integumentary Denies rash Neurologic Neurologic: Denies dizziness, headache(s) or weakness EXAM Physical Exam Const Vital Signs: 05/05/21 12:07 Temperature 97.9 F Temperature Source Temporal Pulse Rate 68 Respiratory Rate 18 Blood Pressure 151/110 H Blood Pressure Mean 123 Pulse Ox 100 Oxygen Delivery Method Room Air Positive well nourished and well developed General Appearance ED: well developed and NAD HEENT Reports normocephalic and head/scalp atraumatic Eyes PERRL and EOMs intact bilaterally Neck supple General: Negative for tenderness Resp normal respiratory effort and clear to auscultation bilaterally Auscultation: Negative for rales, rhonchi or wheezes Cardio regular rate, regular rhythm and no murmurs GI normal to inspection, nondistended, normoactive bowel sounds and non-tender Palpation: soft; Negative for guarding or rebound tenderness present Back/Spine no CVA tenderness Back/Spine Narrative: Tenderness over the right piriformis. No overlying skin changes appreciated. Extremity normal to inspection Extremity Narrative: Lower extremities are neurovascular intact. Negative straight leg test bilaterally. General Extremety ED: Negative for edema or tenderness General Extremity: Negative for edema Neuro no sensory deficits noted Sensorium / Orientation: alert Motor Exam: strength 5/5 throughout Psych mental status grossly normal Skin no rashes or lesions noted MDM MDM MDM Narrative Medical decision making narrative: Patient presents to the emergency department for nontraumatic right low back/buttock pain. This was after a canoeing trip. He reaggravated after a bike ride yesterday. On physical exam it is reproducible over the right piriformis. I do not feel any imaging is necessary at this time. We will treat symptomatically. Is given a dose of Toradol here. He can continue take ibuprofen at home and he will be given a prescription for Flexeril. He is to use heating pads and stretches. He has no red flag symptoms for acute surgical spinal emergency. This time will discharge home in stable condition. Return precautions reviewed. He understands and is agreeable with this plan. All questions were answered. Discharge Plan Triage Chief Complaint: Lower Extremity Injury ED Provider: Ruperto Riggs Dx/Rx/DC Orders Clinical Impression: Low back pain Instructions: ED Back Pain (Acute or Chronic) Prescriptions: New cyclobenzaprine 10 mg tablet 10 mg PO TID PRN (Reason: Muscle Spasm) Qty: 10 RF: 0 No Action omeprazole 10 MG capsule 10 mg PO DAILY RF: 0 lysine 500 MG tablet 500 mg PO DAILY RF: 0 cholecalciferol (vitamin D3) 1,000 UNIT capsule 1,000 unit PO DAILY RF: 0 ezetimibe 10 MG tablet 10 mg PO DAILY RF: 0 acetaminophen 325 MG tablet 650 mg PO Q6H PRN PRN (Reason: Pain) RF: 0 cephalexin 500 mg capsule 500 mg PO TID 7 Days Qty: 21 RF: 0 Primary Care Provider: Lyndon Payton Referrals: Lyndon Payton MD [Primary Care Provider] - 3-5 Days if not improving Disposition Disposition: Home, Self Care
[2021-05-05] MEDS: Ketorolac 30 MG/ML Syringe IM (12:53)
== END 2021-05-05 13:25 | disposition home or self-care (01) ==
PROVIDERS: Emergency Provider Emergency Medicine; PCP Family Medicine
DX: M54.5 Low back pain (principal); Z87.891 Personal history of nicotine dependence
CPT/HCPCS: 96372; 99282

== ENCOUNTER → 2022-04-07 | Outpatient (CLI) | payer MEDICARE, OTHER, SELFPAY ==
--- NOTE | 2022-04-07 06:03 | EKG12_ITS ---
Test Reason : PREOP Blood Pressure : / mmHG Vent. Rate : 071 BPM Atrial Rate : 071 BPM P-R Int : 182 ms QRS Dur : 090 ms QT Int : 400 ms P-R-T Axes : 044 -19 056 degrees QTc Int : 434 ms Sinus rhythm with Premature atrial complexes Nonspecific ST abnormality Abnormal ECG Confirmed by COREY WAY, KHANG ([id number]), editor magazine MEGHANA MOISE ([id number]) on 04/07/2022 8:19:05 AM Referred By: Norberto Sarah Confirmed By:KHANG NICOLE MD
[2022-04-07 06:53] LABS: Hematocrit 44.7 % (40-54); Hemoglobin 14.7 g/dL (13.0-16.5); Mean Corp Hgb Conc 32.9 g/dL (32-36); Mean Corpuscular Hgb 30.9 pg (27.0-32.0); Mean Corpuscular Volume 94.1 fL (80-94); Platelet Count 173 K/mm3 (150-450); RBC Distribution Width CV 12.4 % (11.6-14.6); RBC Distribution Width SD 42.8 fl (35.1-43.9); Red Blood Count 4.75 M/mm3 (4.6-6.2)
[2022-04-07 08:02] LABS: Anion Gap 6 (5-15); BUN 22 mg/dL (7-18); BUN/Creat Ratio 16.3 RATIO (10-20); Chloride 111 mmol/L (98-107); Creatinine, Serum 1.35 mg/dL (0.70-1.30); EST Glomerular Filtration Rate 56 mL/min (>60); Est Glom Filt Rate - Afr Amer 68 mL/min (>60); Glucose 100 mg/dL (74-106); Potassium 4.1 mmol/L (3.5-5.1); Sodium Level 139 mmol/L (136-145)
== END | disposition home or self-care (01) ==
PROVIDERS: PCP Family Medicine; Referring Provider Otolaryngology; Visit Provider Otolaryngology
DX: R94.31 Abnormal electrocardiogram [ECG] [EKG] (principal)
CPT/HCPCS: 36415; 80048; 85027; 93005

== ENCOUNTER → 2022-05-06 | Outpatient (CLI) | payer MEDICARE, OTHER, SELFPAY ==
[2022-05-06 09:18] LABS: ALB/GLOB Ratio 0.9 RATIO (0.9-2.4); AST(SGOT) 15 U/L (15-37); Alanine Aminotransfer ALT/SGPT 26 U/L (16-61); Albumin, Serum 3.6 g/dL (3.2-5.0); Alkaline Phosphatase 98 U/L (45-117); Anion Gap 5 (5-15); BUN 26 mg/dL (7-18); BUN/Creat Ratio 18.8 RATIO (10-20); Calcium,Total 8.9 mg/dL (8.5-10.1); Chloride 108 mmol/L (98-107); Cholesterol 329 mg/dL (200); Creatinine, Serum 1.38 mg/dL (0.70-1.30); EST Glomerular Filtration Rate 54 mL/min (>60); Est Glom Filt Rate - Afr Amer 66 mL/min (>60); Globulin 3.8 g/dL (2.2-4.2); Glucose 106 mg/dL (74-106); High Density Lipoprotein 33 mg/dL; Protein, Total 7.4 g/dL (6.4-8.2); Sodium Level 141 mmol/L (136-145); Triglycerides 263 mg/dL; Very Low Density Lipoprotein 53 mg/dL (5-40)
== END | disposition home or self-care (01) ==
LOC: LAB 13:08
PROVIDERS: PCP Family Medicine
DX: E78.5 Hyperlipidemia, unspecified (principal)
CPT/HCPCS: 36415; 80053; 80061

== ENCOUNTER → 2022-07-21 | Outpatient (CLI) | payer MEDICARE, OTHER, SELFPAY ==
--- NOTE | 2022-07-21 09:55 | RAD_ITS ---
STUDY: X-RAY - PELVIS AND RIGHT HIP REASON FOR EXAM: Male, 67 years old. CHRONIC RIGHT HIP PAIN TECHNIQUE: 4 views of the pelvis and hip. COMPARISON: None. FINDINGS: There is a non-specific bowel gas pattern. Normal visualized soft tissue structures. There is narrowing with cortical sclerosis and osteophyte formation of the sacroiliac joint consistent with degenerative osteoarthritic changes. Normal bilateral superior and inferior pubic rami. Normal pubic symphysis. Normal bilateral ischial tuberosities. Normal visualized femoral head. Normal acetabulum. There is mild articular joint space narrowing of the hip. RAD/HIP, UNI W/ Pelvis 2-3 Views IMPRESSION: Mild degenerative changes, no acute findings Electronically Signed: Shmuel Rossi MD at 13:06 EDT ,
== END | disposition home or self-care (01) ==
LOC: RAD 09:48
PROVIDERS: PCP Family Medicine; Referring Provider Family Medicine; Visit Provider Family Medicine
DX: M25.551 Pain in right hip (principal); G89.29 Other chronic pain
CPT/HCPCS: 73502

== ENCOUNTER → 2023-01-05 | Outpatient (CLI) | payer MEDICARE, OTHER, SELFPAY ==
--- NOTE | 2023-01-06 07:04 | PFT ---
INTRODUCTION: The patient is a 67-year-old male that presents for pulmonary function studies secondary to a diagnosis of chronic cough. Respiratory therapy reported good patient effort. Bronchodilators were used during testing. INTERPRETATION: Forced expiration spirometry demonstrates no evidence of a large airways obstructive ventilatory defect. There was no significant response to aerosolized bronchodilators. Spirograms are of good quality and plateau normally. The respiratory flow-volume loop is normal. Body plethysmography was performed and revealed an elevated TLC to 125% of predicted. Diffusing capacity by single breath CO was was within normal limits. IMPRESSION: Normal spirometry and diffusing capacity without significant bronchodilator response. A mild degree of hyperinflation was noted on lung volumes.
[2023-01-10 04:07] LABS: Immunoglobulin E 4 IU/mL (6-495)
[2023-01-10 08:11] LABS: Alternaria tenuis <0.10 kU/L (Class 0); Ash, White <0.10 kU/L (Class 0); Aspergillus fumigatus <0.10 kU/L (Class 0); Bermuda Grass <0.10 kU/L (Class 0); Birch <0.10 kU/L (Class 0); Black Walnut <0.10 kU/L (Class 0); Cat Hair / Dander,Stand <0.10 kU/L (Class 0); Cedar, Mountain <0.10 kU/L (Class 0); Cladosporium herbarum <0.10 kU/L (Class 0); Cockroach, American <0.10 kU/L (Class 0); Cottonwood <0.10 kU/L (Class 0); D farinae Mite <0.10 kU/L (Class 0); D pteronyssinus <0.10 kU/L (Class 0); Dog Epithelia <0.10 kU/L (Class 0); Elm, American White <0.10 kU/L (Class 0); Immunoglobulin E 4 IU/mL (6-495); Maple/Box Elder <0.10 kU/L (Class 0); Mouse Urine <0.10 kU/L (Class 0); Mulberry, White <0.10 kU/L (Class 0); Oak, White <0.10 kU/L (Class 0); Pecan <0.10 kU/L (Class 0); Penicillium Notatum <0.10 kU/L (Class 0); Pigweed, Rough <0.10 kU/L (Class 0); Ragweed, Short/Common <0.10 kU/L (Class 0); Russian Thistle <0.10 kU/L (Class 0); Sheep Sorrel <0.10 kU/L (Class 0); Sycamore, American <0.10 kU/L (Class 0); Timothy Grass <0.10 kU/L (Class 0)
== END | disposition home or self-care (01) ==
PROVIDERS: Referring Provider Internal Medicine; Visit Provider Internal Medicine
DX: J45.909 Unspecified asthma, uncomplicated (principal)
CPT/HCPCS: 36415; 82785; 86003; 94060; 94726; 94729

== ENCOUNTER → 2023-06-15 | Outpatient (CLI) | payer MEDICARE, OTHER, SELFPAY ==
[2023-06-15 09:25] LABS: Absolute Lymphocyte Count 1.11 X10^3/uL (0.83-4.51); Basophil# 0.05 X10^3/uL; Eosinophil# 0.26 X10^3/uL; Eosinophils% 5.1 % (0-5); Hematocrit 45.6 % (40-54); Hemoglobin 14.5 g/dL (13.0-16.5); Lymphocyte # 1.11 X10^3/ul (0.83-4.51); Lymphocyte % 21.9 % (19-41); Mean Corp Hgb Conc 31.8 g/dL (32-36); Mean Corpuscular Hgb 30.1 pg (27.0-32.0); Mean Corpuscular Volume 94.6 fL (80-94); Mean Platelet Vol. 11.7 fl (6.2-12.0); Monocyte% 11.9 % (0-10); NRBC Flagged by Analyzer 0 % (0-5); Neutrophil # 3.03 X10^3/uL (2.7-7.7); Neutrophil % 59.9 % (47-70); Platelet Count 158 K/mm3 (150-450); RBC Distribution Width CV 12.8 % (11.6-14.6); RBC Distribution Width SD 43.9 fl (35.1-43.9); Red Blood Count 4.82 M/mm3 (4.6-6.2); White Blood Count 5.1 K/mm3 (4.4-11.0)
[2023-06-15 09:53] LABS: Hemoglobin A1c 5.7 % (3.8-5.6)
[2023-06-15 09:55] LABS: AST(SGOT) 17 U/L (15-37); Alanine Aminotransfer ALT/SGPT 32 U/L (16-61); Albumin, Serum 3.7 g/dL (3.2-5.0); Alkaline Phosphatase 109 U/L (45-117); Anion Gap 2 (5-15); BUN 26 mg/dL (7-18); BUN/Creat Ratio 19.1 RATIO (10-20); Calcium,Total 9.2 mg/dL (8.5-10.1); Chloride 111 mmol/L (98-107); Cholesterol 252 mg/dL (200); Creatinine, Serum 1.36 mg/dL (0.70-1.30); EST Glomerular Filtration Rate 55 mL/min (>60); Est Glom Filt Rate - Afr Amer 67 mL/min (>60); Globulin 3.7 g/dL (2.2-4.2); Glucose 102 mg/dL (74-106); High Density Lipoprotein 34 mg/dL; PSA,Total - Annual Screen 7.59 ng/mL (0.00-4.00); Potassium 4.3 mmol/L (3.5-5.1); Protein, Total 7.4 g/dL (6.4-8.2); Sodium Level 141 mmol/L (136-145); Triglycerides 149 mg/dL; Very Low Density Lipoprotein 30 mg/dL (5-40)
== END | disposition home or self-care (01) ==
LOC: LAB 07:51
PROVIDERS: Referring Provider Nurse Practitioner Family; Visit Provider Nurse Practitioner Family
DX: Z79.899 Other long term (current) drug therapy (principal); E78.2 Mixed hyperlipidemia; Z12.5 Encounter for screening for malignant neoplasm of prostate; R79.89 Other specified abnormal findings of blood chemistry
CPT/HCPCS: 36415; 80053; 80061; 83036; 84153; 85025; G0103

== ENCOUNTER 2023-07-07 15:54 | Emergency (ER) | payer MEDICARE, OTHER, SELFPAY ==
[2023-07-07 15:55] VITALS: BP 146/107; PULSE 84; RESP 16; TEMP 36.1; O2SAT 97; BMI 29.4
[2023-07-07] MEDS: Oxymetazoline 0.05% 1 SPRAY SPRAY.BTL 2 SPRAY NASAL (16:20)
--- NOTE | 2023-07-07 16:20 | EDS_ITS ---
HPI HPI - URI History of Present Illness Chief Complaint: Nosebleed Detail of Chief Complaint: Right-sided nosebleed 1 to 2 hours ago. No trauma. Informant: patient and spouse/S.O. Onset/Context/Timing Onset: Today and Hours Context: Gradual Onset Timing: Continuous Maximum Severity: Moderate Narrative Narrative: 68-year-old male on aspirin but no other blood thinners. States he started having an atraumatic nosebleed about an hour ago from the right side. Prior history of nosebleeds not frequently. The only blood thinner he is on his baby aspirin. He denies any trauma. Prior similar symptoms: Yes Recent Illness/Hospitalization: No ROS ROS ED ROS Narrative Denies recent illness. No bruising. No hematuria. No melena. Review of Systems ROS Unobtainable: Denies due to encephalopathy Constitutional Constitutional ED: Denies chills or fever(s) Eyes Eyes: Denies blurry vision ENT ENT ED: Denies ear pain Cardiovascular Cardiovascular: Denies chest pain Respiratory/Chest Respiratory/Chest: Denies cough Gastrointestinal Gastrointestinal: Denies abdominal pain Genitourinary Genitourinary ED: Denies dysuria Musculoskeletal Musculoskeletal: Denies arthralgias Integumentary Denies abscess or Abrasions Neurologic Neurologic: Denies headache(s) Psychiatric Psychiatric: Denies anxiety or depression Endocrine Endocrinology: Denies cold intolerance Hematologic/Lymphatic Hematologic/Lymphatic: Denies easy bleeding, easy bruising or lymphadenopathy Allergic/Immunologic Allergic/Immunologic ED: Denies mouth swelling or tongue swelling PFSH PFS Medical History Acute diverticulitis Asthma GERD (gastroesophageal reflux disease) HLD (hyperlipidemia) Nicotine addiction Obesity (BMI 30.0-34.9) Home Medications omeprazole 10 mg capsule,delayed release 10 mg PO DAILY gerd 09/08/17 [History Last Taken 11/26/17 04:00 10 mg] acetaminophen 325 mg tablet 650 mg (2 x 325 mg) PO Q6H PRN PRN Pain 11/28/17 [Rx Last Taken Unknown] cyclobenzaprine 10 mg tablet 10 mg PO TID PRN Muscle Spasm #10 TABLETS 05/05/21 [Rx Last Taken Unknown] ezetimibe 10 mg tablet 10 mg PO DAILY 12/21/22 [History Last Taken Unknown] fluticasone propionate 50 mcg/actuation nasal spray,suspension 2 spray intranasal DAILY 12/21/22 [History Last Taken Unknown] montelukast 10 mg tablet 10 mg PO DAILY 12/21/22 [History Last Taken Unknown] amoxicillin 500 mg tablet 500 mg PO BID 3 days #6 tabs 07/07/23 [Rx Last Taken Unknown] Allergy/AdvReac Type Severity Reaction Status Date / Time benzonatate Allergy Unknown Verified 07/07/23 15:57 [From Ameena Ellsworth] Yojwzkh-HKB-XzN Reductase Allergy SWOLLEN Verified 07/07/23 15:57 Inhibitor LIVER [Bbvxthz-Uta-Cbt Reductase Inhibitor] Family History Mother Heart disease High cholesterol Skin cancer Father High cholesterol Heart disease Brother High cholesterol Hypertension Sister High cholesterol Skin cancer Surgical History History of toe surgery s/p lap sigmoid resection (~11/26/17) S/P shoulder surgery Social History Smoking Status: Former smoker Tobacco: How many years used: 12 second hand exposure: No alcohol intake: current substance use type: does not use seatbelt use: always EXAM Physical Exam Narrative Exam Narrative: All 38-year-old male. Vital signs stable afebrile. at bedside. Active bleeding from the right side of his nose. Clamp on. HEENT exam he is got blood in his posterior pharynx. There is clots coming out his nose with blowing. It is bright red blood. When I evaluate his nasal passageways the right side is just blood basically all over. The left has some minimal dried blood. Lungs are clear. Heart regular rhythm. Abdomen soft nontender. Moving all 4 extremities. Nontender no edema. Normal strength. Const Vital Signs: 07/07/23 15:55 07/07/23 17:12 Temperature 97.0 F L Temperature Source Temporal Pulse Rate 84 77 Respiratory Rate 16 18 Blood Pressure 146/107 H 150/93 H Blood Pressure Mean 120 112 Pulse Ox 97 96 Oxygen Delivery Method Room Air Room Air Positive well nourished and well developed; Negative for obese, cachectic or contractures General Appearance ED: well developed and NAD; Negative for cachectic, contractures, cyanotic, diaphoretic or pallor Nutritional Appearance: Negative for cachectic or obese HEENT Reports moist mucous membranes; Denies dry mucous membranes normocephalic and atraumatic Face and Sinus: Negative for sinus tenderness Mouth ED: No dry mucous membranes Mouth: No dry mucous membranes Eyes PERRL and EOMs intact bilaterally General Eye ED: Negative for pale conjunctiva or scleral icterus Neck no lymphadenopathy, supple and no meningeal signs General: Negative for anterior neck swelling or lymphadenopathy Resp normal respiratory effort and clear to auscultation bilaterally Effort and Inspection: Negative for retractions Auscultation: Negative for rales, rhonchi or wheezes Cardio S1 normal heart sound, S2 normal heart sound and no murmurs Rate: regular rate Rhythm: regular rhythm GI non-tender, non-distended and no masses Auscultation: normoactive bowel sounds Palpation: soft; Negative for tender or guarding Back/Spine no CVA tenderness and normal ROM General Back: Negative for CVA tenderness Cervical Spine: Negative for cervical spine tenderness Thoracic Spine / Upper Back: Negative for thoracic spinal tenderness Lumbar Spine / Lower Back: Negative for lumbar spinal tenderness Sacrum: Negative for tenderness Extremity normal to inspection and full ROM General Extremety ED: Negative for cyanosis or tenderness General Extremity: Negative for cyanosis Neuro oriented x3 and CN's II-XII intact bilaterally Sensorium / Orientation: alert, oriented to person, oriented to place and oriented to time; Negative for orientation impaired, lethargic or stuporous Motor Exam: strength 5/5 throughout Psych mental status grossly normal Appearance: Negative for other Attitude: No agitated Mood & Affect: Negative for depressed, anxious or tearful Skin General Skin Exam: Negative for jaundice or pallor Lesions: no lesions Rashes: no rashes Trauma: Negative for abrasion MDM MDM MDM Narrative Medical decision making narrative: Patient with right-sided nosebleed. Only blood thinner is aspirin. Afrin soaked cotton balls were placed in both sides of his naris. Patient will be packed once the bleeding slows. Repeat exam patient to continue bleeding. I placed Merisel packs in both sides of his nose. The left resolved. The right continue to bleed so I pulled that pack placed a second Merisel pack soaked with Yosef mix. Currently the bleedi ng is stopped. At 6:50 PM. There is no bleeding in his posterior pharynx. He will be ambulated to see if the bleeding restarts. If not to be discharged home on amoxicillin due to having bilateral nasal packs. To follow-up with ENT on Sunday. I will contact ENT on-call to ensure close follow-up. Patient was ambulated and did well. He has had no further bleeding. He will hold his aspirin. I spoke to Dr. Ray Wellington on-call for ENT. They will ensure close follow-up on Sunday. Patient is to return if he has recurrent bleeding that they are unable to stop at home. History & Record Review Discussion w/independent historian: Patient and Family Additional record(s) reviewed:: Prior inpatient record, Prior outpatient record, Prior ED visit and Prior labs Discharge Plan Triage Chief Complaint: Nosebleed ED Provider: Jacob Elliott Dx/Rx/DC Orders Clinical Impression: Acute anterior epistaxis Instructions: ED Epistaxis (Adult) Prescriptions: New amoxicillin 500 mg tablet 500 mg PO BID 3 Days Qty: 6 0RF No Action montelukast 10 mg tablet 10 mg PO DAILY fluticasone propionate 50 mcg/actuation spray,suspension 2 spray intranasal DAILY Rx Instructions: administer into each nostril ezetimibe 10 mg tablet 10 mg PO DAILY omeprazole 10 MG capsule 10 mg PO DAILY acetaminophen 325 MG tablet 650 mg PO Q6H PRN PRN (Reason: Pain) 0RF cyclobenzaprine 10 mg tablet 10 mg PO TID PRN (Reason: Muscle Spasm) Qty: 10 0RF Primary Care Provider: KATHRYN HU Referrals: KATHRYN HU [Other] Aidan Connelly MD [Med Staff - Active Staff] - 2 Days (Call their office on Sunday to be seen on Sunday.) Activity Restrictions/Additional Instructions: Take it easy over the weekend. No heavy exertion because that can cause the bleeding to restart or worsen. Hold your aspirin until seen in follow-up by ENT. If rebleeds hold direct pressure for 20 to 30 minutes. If unable to stop return. Do not remove the nasal packs. If they fall out you cannot put them back in. Take the antibiotic amoxicillin 1 pill twice a day for the next 3 days starting tomorrow. You need to be on antibiotic while the nasal packs are in the prevent a sinus infection. Call Dr. Norberto Navas and Dr. Wellington's office Sunday morning at 8 or 9 in the morning. To be rechecked on Sunday. Disposition Disposition: Home, Self Care
[2023-07-07 17:12] VITALS: BP 150/93; PULSE 77; RESP 18; O2SAT 96
--- NOTE | 2023-07-07 19:07 | NURSING ---
pt ambulated around entire unit with no further bleeding. back of throat clear of any drng as well.
== END 2023-07-07 19:12 | disposition home or self-care (01) ==
PROVIDERS: Emergency Provider Emergency Medicine; Visit Provider Emergency Medicine
DX: R04.0 Epistaxis (principal); Z87.891 Personal history of nicotine dependence; E78.5 Hyperlipidemia, unspecified; Z79.82 Long term (current) use of aspirin; J45.909 Unspecified asthma, uncomplicated
CPT/HCPCS: 30901; 96372; 99282; A4216

== ENCOUNTER 2023-07-07 22:38 | Emergency (ER) | payer MEDICARE, OTHER, SELFPAY ==
[2023-07-07 22:38] VITALS: BP 157/93; PULSE 84; RESP 15; TEMP 36.8; O2SAT 97
[2023-07-07] MEDS: HYDROmorphone 1 MG/ML Syringe IM (23:06)
[2023-07-07] MEDS: Ondansetron ODT 4 MG Tablet PO (23:07)
[2023-07-07] MEDS: Lidocaine 2% /Epi 1:100 (20ml) 20 ML VIAL INFILT (23:07)
[2023-07-07] MEDS: Oxymetazoline 0.05% 1 SPRAY SPRAY.BTL 2 SPRAY NASAL (23:08)
[2023-07-07 23:46] VITALS: BMI 29.7
[2023-07-07 23:47] VITALS: BP 128/84; PULSE 67; RESP 16; O2SAT 90
--- NOTE | 2023-07-08 00:28 | EDS_ITS ---
HPI History of Present Illness Chief Complaint: Nosebleed Informant: patient and spouse/S.O. Narrative Narrative: The patient is a 68-year-old male with past medical history of hyperlipidemia GERD and diverticulosis. He was seen earlier today secondary to right-sided nosebleed. He states he takes a baby aspirin but otherwise denies any bleeding disorder or blood thinner use. He states there was no trauma prior to the initial bleeding beginning. He states that the area was packed and that he was doing well but then was at home and had a sneezing episode where he dislodged the packing and bleeding reoccurred. He states he been bleeding now for approxi mately 45 minutes to an hour without signs of stopping and secondary to his comes in for repeat evaluation [facility] Medical History Acute diverticulitis Asthma GERD (gastroesophageal reflux disease) HLD (hyperlipidemia) Nicotine addiction Obesity (BMI 30.0-34.9) Home Medications omeprazole 10 mg capsule,delayed release 10 mg PO DAILY gerd 09/08/17 [History Last Taken 11/26/17 04:00 10 mg] acetaminophen 325 mg tablet 650 mg (2 x 325 mg) PO Q6H PRN PRN Pain 11/28/17 [Rx Last Taken Unknown] cyclobenzaprine 10 mg tablet 10 mg PO TID PRN Muscle Spasm #10 TABLETS 05/05/21 [Rx Last Taken Unknown] ezetimibe 10 mg tablet 10 mg PO DAILY 12/21/22 [History Last Taken Unknown] fluticasone propionate 50 mcg/actuation nasal spray,suspension 2 spray intranasal DAILY 12/21/22 [History Last Taken Unknown] montelukast 10 mg tablet 10 mg PO DAILY 12/21/22 [History Last Taken Unknown] amoxicillin 500 mg tablet 500 mg PO BID 3 days #6 tabs 07/07/23 [Rx Last Taken Unknown] hydrocodone-acetaminophen 5-325mg 5mg-325mg 1 tab PO Q6H PRN PRN Pain 3 days #12 TABLETS 07/08/23 [Rx Last Taken Unknown] Allergy/AdvReac Type Severity Reaction Status Date / Time benzonatate Allergy Unknown Verified 07/07/23 15:57 [From Ameena Ellsworth] [place]kjife-BQA-ApL Reductase Allergy SWOLLEN Verified 07/07/23 15:57 Inhibitor LIVER [Slnwhvm-Ogr-Wvn Reductase Inhibitor] Family History Mother Heart disease High cholesterol Skin cancer Father High cholesterol Heart disease Brother High cholesterol Hypertension Sister High cholesterol Skin cancer Surgical History History of toe surgery s/p lap sigmoid resection (~11/26/17) S/P shoulder surgery Social History Smoking Status: Former smoker Tobacco: How many years used: 12 second hand exposure: No alcohol intake: current substance use type: does not use seatbelt use: always ROS ROS ED Constitutional Constitutional ED: Denies chills or fever(s) ENT ENT ED: Reports other Details: Positive nosebleed ; Denies sore throat Cardiovascular Cardiovascular: Denies chest pain or racing heartbeat Respiratory/Chest Respiratory/Chest: Denies cough or dyspnea Gastrointestinal Gastrointestinal: Denies abdominal pain, diarrhea, nausea or vomiting Genitourinary Genitourinary ED: Denies dysuria Musculoskeletal Musculoskeletal: Denies myalgias Integumentary Denies rash Neurologic Neurologic: Denies headache(s) Hematologic/Lymphatic Hematologic/Lymphatic: Denies easy bleeding or easy bruising EXAM Physical Exam Const Vital Signs: 07/07/23 22:38 07/07/23 23:47 07/08/23 00:52 Temperature 98.2 F Temperature Source Temporal Pulse Rate 84 67 63 Respiratory Rate 15 16 15 Blood Pressure 157/93 H 128/84 H 128/81 H Blood Pressure Mean 114 98 96 Pulse Ox 97 90 93 Oxygen Delivery Method Room Air Room Air Positive well nourished and well developed General Appearance ED: well developed; Negative for pallor HEENT HEENT Narrative: Patient has a persistent ooze of dark red blood from the right nostril with overflow bleeding into the left. Eyes PERRL and EOMs intact bilaterally General Eye ED: Negative for pale conjunctiva Neck supple Resp normal respiratory effort and clear to auscultation bilaterally Cardio regular rate and regular rhythm Extremity normal to inspection Neuro oriented x3, CN's II-XII intact bilaterally and no sensory deficits noted Sensorium / Orientation: alert Motor Exam: strength 5/5 throughout Psych mental status grossly normal Skin no rashes or lesions noted General Skin Exam: Negative for pallor MDM MDM MDM Narrative Medical decision making narrative: Patient presented to the ER slightly hypertensive otherwise with stable vitals. He reported having a sneezing episode dislodging his packing and then return of bleeding. Exam indicates he has a anterior nosebleed from Jose box plexus and not a posterior nosebleed from the sphenopalatine artery. Therefore there is no need for emergent ENT consultation. Patient does not take blood thinners and vitals are stable and therefore do not feel there is need for laboratory studies as my concern for acute blood loss anemia is low. The patient had lidocaine with epinephrine soaked cotton balls placed in his bilateral nostrils. Once these were removed there is no active bleeding from the left nostril but persistent ooze from the right consistent with his history and exam. Therefore 5.5 cm rapid Rhino nasal packing was placed into the right nostril. It was inflated to 5 cc of air. The patient was watched in the ER for approximately half hour and there was no active bleeding from the right nostril no overflow bleeding out of the left nostril or in the posterior pharynx. Therefore at this time as vitals are stable and bleeding has been controlled there is no need for further evaluation and patient is otherwise safe for discharge. History & Record Review Discussion w/independent historian: Patient and Significant other Discharge Plan Triage Chief Complaint: Nosebleed ED Provider: Samuel Hall Dx/Rx/DC Orders Clinical Impression: Acute anterior epistaxis, HLD (hyperlipidemia), GERD (gastroesophageal reflux disease) Instructions: ED Epistaxis (Adult) Prescriptions: New hydrocodone-acetaminophen 5-325 mg tablet 1 tab PO Q6H PRN PRN (Reason: Pain) 3 Days Qty: 12 0RF No Action montelukast 10 mg tablet 10 mg PO DAILY fluticasone propionate 50 mcg/actuation spray,suspension 2 spray intranasal DAILY Rx Instructions: administer into each nostril ezetimibe 10 mg tablet 10 mg PO DAILY omeprazole 10 MG capsule 10 mg PO DAILY acetaminophen 325 MG tablet 650 mg PO Q6H PRN PRN (Reason: Pain) 0RF cyclobenzaprine 10 mg tablet 10 mg PO TID PRN (Reason: Muscle Spasm) Qty: 10 0RF amoxicillin 500 mg tablet 500 mg PO BID 3 Days Qty: 6 0RF Primary Care Provider: Amna Montejo Referrals: Norberto Sarah MD [Med Staff - Active Staff] - Amna Montejo NP-C [Primary Care Provider] - Activity Restrictions/Additional Instructions: Please follow-up with ENT for repeat evaluation and have your packing removed. If you have any further concerns or repeat bleeding please return to the ER for repeat evaluation Disposition Disposition: Home, Self Care Discharge Date/Time: 07/08/23 00:53
[2023-07-08 00:52] VITALS: BP 128/81; PULSE 63; RESP 15; O2SAT 93
== END 2023-07-08 00:53 | disposition home or self-care (01) ==
PROVIDERS: Emergency Provider Emergency Medicine; PCP Nurse Practitioner Family; Visit Provider Emergency Medicine
DX: R04.0 Epistaxis (principal); K21.9 Gastro-esophageal reflux disease without esophagitis; E78.5 Hyperlipidemia, unspecified; Z87.891 Personal history of nicotine dependence; J45.909 Unspecified asthma, uncomplicated
CPT/HCPCS: 30901; 96372; 99282

== ENCOUNTER → 2025-04-16 | Outpatient (CLI) | payer MEDICARE, OTHER, SELFPAY ==
[2025-04-17 13:08] LABS: PSA, Free 1.45 ng/mL; PSA, Free % 17.4 % (.); PSA, Total Ultrasensitive 8.340 ng/mL (0.000-4.000)
== END | disposition home or self-care (01) ==
LOC: LAB 08:23
PROVIDERS: PCP Family Medicine; Referring Provider Urology; Visit Provider Urology
DX: R97.20 Elevated prostate specific antigen [PSA] (principal)
CPT/HCPCS: 36415; 84153; 84154